=== PATIENT | male | born 1960 | race Caucasian/White ===

== ENCOUNTER → 2020-11-11 09:11 | Outpatient (BNVA) | payer OTHER, SELFPAY | PROVIDERS: PCP Internal Medicine; Visit Provider Surgery ==

== ENCOUNTER → 2021-06-06 12:56 | Outpatient (BNVA) | payer OTHER, SELFPAY | PROVIDERS: PCP Internal Medicine; Visit Provider Internal Medicine Pulmonary Disease ==

== ENCOUNTER 2021-06-22 10:14 | Outpatient (REF) | payer OTHER, SELFPAY ==
--- NOTE | ~2021-06-22 | XR_ITS ---
EXAMINATION: XR CHEST CLINICAL INFORMATION: Z77.090 - Contact with and (suspected) exposure to asbestos COMPARISON: Chest radiographs 06/11/2012, 05/27/2012. TECHNIQUE: 2 views of the chest were obtained. FINDINGS: The lungs are clear. There is no airspace consolidation, fibrotic changes on plain film, pleural thickening, or effusion. The costophrenic sulci are clear. The cardiac and hilar and mediastinal contours are normal. Mild tortuosity descending thoracic aorta are again noted slightly more prominent since 2012. Bony structures again show some loss of height involving several midthoracic vertebral bodies. No acute bony abnormality. XR/XR chest 2V IMPRESSION: No acute intrathoracic disease.
[2021-06-22 10:31] LABS: MANUAL DIFF FLAG NO
[2021-06-22 10:41] LABS: Basophils Absolute Auto 0.1 X10*3/uL (0.0-0.2); Basophils Percent Auto 0.5 % (0-2); Eosinophils Absolute Auto 0.3 X10*3/uL (0.0-0.4); Eosinophils Percent Auto 3.6 % (0-4); Hematocrit 47.5 % (42.0-52.0); Hemoglobin 16.4 g/dl (14.0-18.0); Imm Gran Abs Auto 0.04 X10*3/uL (0.00-0.03); Imm Gran Pct Auto 0.4 % (0.0-0.4); Lymphocytes Absolute Auto 1.5 X10*3/uL (1.2-4.9); Lymphocytes Percent Auto 16.1 % (20-40); Mean Corpuscular HGB Conc 34.5 g/dl (31.0-36.0); Mean Corpuscular Hemoglobin 31.1 pg (27.0-33.0); Mean Corpuscular Volume 90.1 fL (80.0-98.0); Mean Platelet Volume 10.6 fL (9.4-12.4); Monocytes Absolute Auto 0.7 X10*3/uL (0.1-1.2); Neutrophils Absolute Auto 6.6 x10*3/uL (2.0-8.3); Neutrophils Percent Auto 71.4 % (45-73); Platelet Count 219 X10*3/uL (160-400); Red Blood Count 5.27 X10*6/uL (4.60-5.80); Red Cell Distribution Width 13.1 % (11.0-16.0); White Blood Count 9.3 X10*3/uL (4.8-10.8)
== END 2021-06-22 10:15 | disposition home or self-care (01) ==
LOC: HO.XRAY 10:14
PROVIDERS: PCP Internal Medicine; Visit Provider Internal Medicine Pulmonary Disease
DX: Z91.09 Other allergy status, other than to drugs and biological substances (principal); Z77.090 Contact with and (suspected) exposure to asbestos
CPT/HCPCS: 36415; 71046; 82785; 85025; 86003

== ENCOUNTER 2021-07-04 10:05 | Outpatient (REF) | payer OTHER, SELFPAY ==
--- NOTE | 2021-07-04 17:19 | PFT_ITS ---
FLOWS: FEV1 93% of predicted at 3.05 L. FVC 101% of predicted at 4.38 L. FEV1 to FVC ratio of 0.70. Bronchodilator testing was not performed as patient declined bronchodilator testing. LUNG VOLUMES: Total lung capacity 104% of predicted at 6.68 L. Residual volume 107% of predicted at 2.20 L. Slow vital capacity 103% of predicted at 4.48 L. Expiratory reserve volume 70% of predicted at 0.86 L. Diffusion capacity is normal. IMPRESSION: No obstructive or restrictive ventilatory defect. Bronchodilator testing was not performed as patient declined bronchodilator testing. Essentially normal pulmonary function test. MD MAREN Quick/MODL / [id number]
== END 2021-07-04 10:06 | disposition home or self-care (01) ==
LOC: HO.RESP 10:05
PROVIDERS: PCP Internal Medicine; Visit Provider Internal Medicine Pulmonary Disease
DX: J84.9 Interstitial pulmonary disease, unspecified (principal)
CPT/HCPCS: 94010; 94727; 94729

== ENCOUNTER → 2021-08-26 13:09 | Outpatient (BNVA) | payer OTHER, SELFPAY | PROVIDERS: PCP Internal Medicine; Visit Provider Internal Medicine Pulmonary Disease | DX: Z13.89 Encounter for screening for other disorder (principal) ==

== ENCOUNTER 2021-10-10 10:53 | Outpatient (REF) | payer OTHER, SELFPAY ==
--- NOTE | ~2021-10-10 | CT_ITS ---
EXAMINATION: CT CHEST WITHOUT CONTRAST CLINICAL INFORMATION: Interstitial pulmonary disease. COMPARISON: None TECHNIQUE: Multidetector volumetric CT imaging of the chest was done. Axial MIP volume rendering provided. Sagittal and coronal reformatted images were obtained. This CT examination was performed using dose optimization techniques as appropriate, variously including the following: *Automated exposure control *Adjustment of mA and/or kV according to patient size (this includes techniques or standardized protocols for targeted exams where dose is matched to indication/reason for exam; i.e. extremities or head) *Use of iterative reconstruction technique DLP: 197 mGy-cm FINDINGS: CROCHETER: Well inflated lungs. LUNGS: The lungs are hyperinflated but clear of acute pneumonic process. There is a 2 mm nodule right upper lobe adjacent to the major fissure axial image 103/6. No additional nodules seen. There is no interstitial thickening. No bronchiectasis or peribronchial wall thickening. MEDIASTINUM: The thyroid lobes are symmetrical and normal. The central trachea and the bronchi are widely patent. The heart size and the great vessels are normal caliber. There are no coronary artery calcifications. There is no pericardial effusion. PLEURA: There is no pleural effusion. No pleural mass or thickening. AXILLA: No lymphadenopathy. UPPER ABDOMEN: The visualized liver, spleen, pancreas, and bilateral adrenal glands are unremarkable. OSSEOUS STRUCTURES: There is no lytic or sclerotic process seen. There is mild ventral spondylosis mid and lower dorsal spine. No lytic or sclerotic process. CT/CT chest wo con IMPRESSION: Hyperinflated lungs without acute process. There is a small nonsuspicious pulmonary nodule right upper lobe. There is no interstitial thickening. Fleischner guidelines were followed.
== END 2021-10-10 10:54 | disposition home or self-care (01) ==
LOC: HO.CT 10:53
PROVIDERS: PCP Internal Medicine; Visit Provider Internal Medicine Pulmonary Disease
DX: J84.9 Interstitial pulmonary disease, unspecified (principal)
CPT/HCPCS: 71250

== ENCOUNTER 2023-02-16 09:51 | Outpatient (AMB) | payer OTHER, SELFPAY ==
--- NOTE | 2023-02-16 09:54 | MHC.OFFVIS ---
Intake Intake Visit Reasons: Testosterone level consult Intake Note: New Patient is Present for Testosterone Consult Current Medication: None Antibiotic Allergies: None Blood Thinners: None Pharmacy: [facility] Allergies No Known Allergies Allergy (Verified 02/16/23 09:55) Medication List - Last Reconciled 02/16/23 by Reagan Andrea MD No Known Home Meds HPI HPI Comments History of Present Illness Details Bill is a pleasant male. He is a patient of Dr. James. He seen following urologic conditions - abnormal hormonal labs Abnormal hormonal labs High estrogen - over 200. Should be in 150 range Otherwise normal total testosterone 450, free testosterone 54 No reported symptoms Plan repeat lab work PFSH Medical History Umbilical hernia Diastasis recti Surgical History History of repair of ACL Social History Alcohol intake: current Alcohol intake frequency: holidays/special occasions only Patient Tobacco Use Status: Never used Tobacco Review of Systems Const Denies chills and Denies fever(s) Card Reports no additional complaints and Denies syncope Resp Denies cough GI Denies abdominal pain and Denies heartburn Reports as per HPI and Denies change in libido Neuro Denies syncope Psych Denies change in libido Endo Denies change in libido Physical Exam Const General: cooperative, healthy appearing, comfortable and no acute distress Orientation/consciousness: patient oriented x3 HEENT Face and sinus: Yes normal facial exam Mouth: moist mucous membranes Neck Neck: Yes normal visual inspection, Yes full ROM and Yes trachea midline Chest Chest palpation & inspection: normal inspection of the chest Resp Effort & Inspection: normal respiratory effort, able to speak in complete sentences and no respiratory distress GI Inspection: Yes normal to inspection Back/Spine/Pelvis Cervical Spine: normal cervical lordosis Thoracic/Lumbar Spine: thoracic and lumbar spine normal to inspection Skin General skin exam: no rashes or lesions noted Neuro General: patient oriented x3, gait normal, tone normal and moves all extremities Extrem General: Yes normal to inspection and Yes capillary refill normal Assessment & Plan Assessment & Plan (1) Hypogonadism in male: Code(s): E29.1 - Testicular hypofunction Plan Repeat labs Orders: Orders Lutenizing Hormone 02/16/23 E11.69 - Type 2 diabetes mellitus with other specified complication, E29.1 - Testicular hypofunction, N52.1 - Erectile dysfunction due to diseases classified elsewhere Estradiol Ultra Sensitive 02/16/23 E29.1 - Testicular hypofunction Ferritin 02/16/23 E11.9 - Type 2 diabetes mellitus without complications, E29.1 - Testicular hypofunction Hemoglobin A1c 02/16/23 E11.9 - Type 2 diabetes mellitus without complications, E29.1 - Testicular hypofunction Follicle Stimulating Hormone 02/16/23 E29.1 - Testicular hypofunction, R68.82 - Decreased libido Testosterone, Free/Total 02/16/23 E29.1 - Testicular hypofunction, R68.82 - Decreased libido Sex Hormone Binding Globulin 02/16/23 E29.1 - Testicular hypofunction, R68.82 - Decreased libido Albumin Level 02/16/23 E29.1 - Testicular hypofunction Prolactin 02/16/23 E29.1 - Testicular hypofunction, R68.82 - Decreased libido Patient Instructions: Imaging studies, laboratory and physical exam results were discussed and reviewed in detail. No major barriers to patient understanding were identified. An opportunity to ask questions regarding the treatment plan was provided. All questions were answered. The patient expressed understanding and agreement with the above treatment plan. The patient is aware they should contact our office by phone for worsening of their current condition or the appearance of new urologic symptoms. Compliance is encouraged with any medications and followup testing that is ordered. It is a privilege to participate in the urologic care of your patient. If you have any questions or concerns regarding treatment for the above conditions, or other urologic issues, please do not hesitate to contact me. The office telephone contact is [phone]. This note is constructed using voice recognition software. While every effort has been made to ensure accuracy mechanical service specialist errors may have been included. Yours sincerely, Dr Reagan Andrea MD, [facility] - Urology Providers of Expert, Compassionate Care for the Genitourinary System Coding Level of Care Code New Pt Level 3 (49156) Diagnoses Hypogonadism in male E29.1
== END 2023-02-16 10:32 | disposition home or self-care (01) ==
PROVIDERS: PCP Internal Medicine; Visit Provider Urology
DX: E29.1 Testicular hypofunction (principal)
CPT/HCPCS: 99203

== ENCOUNTER → 2023-02-16 09:51 | Outpatient (BNVA) | payer OTHER, SELFPAY | PROVIDERS: PCP Internal Medicine; Visit Provider Urology ==

== ENCOUNTER 2023-02-26 12:08 | Outpatient (REF) | payer OTHER, SELFPAY ==
[2023-02-26 13:24] LABS: Estimated Average Glucose 94 mg/dL; Hemoglobin A1c % 4.9 % (<6.0)
[2023-02-26 13:27] LABS: Albumin Level 4.4 g/dL (3.5-5.0)
[2023-02-26 13:55] LABS: Ferritin 494 ng/mL (20-250)
[2023-02-27 20:14] LABS: Follicle Stimulating Hormone 4.8 mIU/mL (1.6-8.0); Lutenizing Hormone 4.6 mIU/mL (1.6-15.2); Prolactin 5.7 ng/mL (2.0-18.0); Sex Hormone Binding Globulin 45 nmol/L (22-77)
[2023-03-02 17:47] LABS: Testosterone, Free 66.4 pg/mL (35.0-155.0); Testosterone, Total 558 ng/dL (250-1100)
[2023-03-03 03:54] LABS: Estradiol Ultra Sensitive 28 pg/mL (< OR = 29)
== END 2023-02-26 12:09 | disposition home or self-care (01) ==
LOC: HO.10HDL 12:08
PROVIDERS: Visit Provider Urology
DX: E11.69 Type 2 diabetes mellitus with other specified complication (principal); N52.1 Erectile dysfunction due to diseases classified elsewhere; E29.1 Testicular hypofunction; R68.82 Decreased libido
CPT/HCPCS: 36415; 82040; 82670; 82728; 83001; 83002; 83036; 84146; 84270; 84402; 84403

== ENCOUNTER 2023-03-13 13:03 | Outpatient (AMB) | payer OTHER, SELFPAY ==
--- NOTE | 2023-03-13 13:03 | MHC.OFFVIS ---
Intake Intake Visit Reasons: 4w/labs(set) Intake Note: Patient is Present for Telephone Follow Up For Urology Med: none Antibiotic Allergy: none Blood Thinner:none Allergies No Known Allergies Allergy (Verified 02/16/23 09:55) HPI HPI Comments History of Present Illness Details Bill is a pleasant male. He is a patient of Dr. James. He seen following urologic conditions - abnormal hormonal labs Telemedicine Evaluation 15 min Consultation [employer] Repeat lab work 02/26 T 558, Free T 65, FSH 4.6, LH 4.6, E2 28, Ferritin 494 Broken sleep pattern Abnormal hormonal labs High estrogen - over 200. Should be in 150 range Otherwise normal total testosterone 450, free testosterone 54 No reported symptoms NAD f/u PFSH Medical History Umbilical hernia Diastasis recti Surgical History History of repair of ACL Social History Alcohol intake: current Alcohol intake frequency: holidays/special occasions only Patient Tobacco Use Status: Never used Tobacco Review of Systems Const All systems reviewed & are unremarkable except as noted in HPI and below Reports no additional complaints Resp Reports no additional complaints GI Reports no additional complaints Reports as per HPI Musc Reports no additional complaints Physical Exam Telemedicine evaluation Appropriate responses Regular breathing rate and rhythm HEENT Head: Yes normal to inspection Ears: hearing grossly normal bilaterally Eyes General: appearance normal, both eyes and all related structures Neck Neck: Yes normal visual inspection Chest Chest palpation & inspection: normal inspection of the chest Resp Effort & Inspection: normal respiratory effort and able to speak in complete sentences Assessment & Plan Assessment & Plan (1) Hypogonadism in male: Code(s): E29.1 - Testicular hypofunction Plan PRN Patient Instructions: Imaging studies, laboratory and physical exam results were discussed and reviewed in detail. No major barriers to patient understanding were identified. An opportunity to ask questions regarding the treatment plan was provided. All questions were answered. The patient expressed understanding and agreement with the above treatment plan. The patient is aware they should contact our office by phone for worsening of their current condition or the appearance of new urologic symptoms. Compliance is encouraged with any medications and followup testing that is ordered. It is a privilege to participate in the urologic care of your patient. If you have any questions or concerns regarding treatment for the above conditions, or other urologic issues, please do not hesitate to contact me. The office telephone contact is [phone]. This note is constructed using voice recognition software. While every effort has been made to ensure accuracy ammunition assembly i laborer errors may have been included. Yours sincerely, Dr Reagan Andrea MD, [facility] - Urology Providers of Expert, Compassionate Care for the Genitourinary System Telehealth Telehealth Location of provider rendering services: practice address Location of patient: address on file Patient Identification confirmed using: Name, : Yes Telehealth method: video Patient verbally consented to treatment: Yes Patient verbally consented to billing insurance company: Yes Patient informed of any privacy concerns related to visit: Yes Coding Level of Care Code Tele Est Pt Level 3 (86334) Diagnoses Hypogonadism in male E29.1
== END 2023-03-13 13:51 | disposition home or self-care (01) ==
LOC: HO.HUSH 13:03
PROVIDERS: PCP Internal Medicine; Visit Provider Urology
DX: E29.1 Testicular hypofunction (principal)
CPT/HCPCS: 99213

== ENCOUNTER → 2023-03-13 13:03 | Outpatient (BNVA) | payer OTHER, SELFPAY | PROVIDERS: PCP Internal Medicine; Visit Provider Urology ==

== ENCOUNTER 2023-10-16 10:17 | Outpatient (REF) | payer OTHER, SELFPAY ==
[2023-10-16 11:17] LABS: Estimated Average Glucose 97 mg/dL
[2023-10-16 11:49] LABS: Albumin Level 4.1 g/dL (3.5-5.0)
[2023-10-16 11:50] LABS: Anion Gap 11 (12-20)
[2023-10-16 11:54] LABS: Alanine Aminotransferase 31 U/L (0-40); Alkaline Phosphatase 57 U/L (39-117); Aspartate Amino Transferase 24 U/L (5-37); Bilirubin Total 0.9 mg/dL (0.0-1.0); Blood Urea Nitrogen 18 mg/dL (9-16); Carbon Dioxide 26 mmol/L (22-29); Chloride 105 mmol/L (96-108); Cholesterol 187 mg/dL (<200); Estimated Glomerular Filt Rate > 60; Glucose Random 96 mg/dL (60-115); HDL Cholesterol 35 mg/dL (>40); LDL Cholesterol Calculated 134 mg/dL (<100); Sodium 138 mmol/L (135-145); Total Protein 6.9 g/dL (6.5-8.0); Triglycerides 92 mg/dL (<150)
[2023-10-16 12:11] LABS: Ferritin 556 ng/mL (20-250)
[2023-10-16 12:25] LABS: Prostate Specific Antigen 0.34 ng/mL (<0.05-4.0)
[2023-10-18 01:34] LABS: Follicle Stimulating Hormone 5.1 mIU/mL (1.4-12.8); Lutenizing Hormone 3.3 mIU/mL (1.6-15.2); Prolactin 5.1 ng/mL (2.0-18.0); Sex Hormone Binding Globulin 42 nmol/L (22-77)
[2023-10-20 19:19] LABS: Testosterone, Free 73.7 pg/mL (35.0-155.0); Testosterone, Total 550 ng/dL (250-1100)
[2023-10-23 02:48] LABS: Estradiol Ultra Sensitive 40 pg/mL (< OR = 29)
== END 2023-10-16 10:18 | disposition home or self-care (01) ==
LOC: HO.10HDL 10:17
PROVIDERS: Visit Provider Urology
DX: R53.83 Other fatigue (principal); E78.5 Hyperlipidemia, unspecified; Z12.5 Encounter for screening for malignant neoplasm of prostate
CPT/HCPCS: 36415; 80053; 80061; 82670; 82728; 83001; 83002; 83036; 84146; 84153; 84270; 84402; 84403

== ENCOUNTER 2023-10-23 11:04 | Outpatient (AMB) | payer OTHER, SELFPAY ==
--- NOTE | 2023-10-23 11:06 | A.OFFVIS_ITS ---
Intake Visit Reasons: follow up/abnormal hormonal labs Intake Note: Patient is Present for Follow Up Labs Urology Medication: none Antibiotic Allergies:None Blood Thinners:None Community Health Planning Director Required: No Allergies No Known Allergies Allergy (Verified 10/23/23 11:10) Medication List - Last Reconciled 10/23/23 by Reagan Andrea MD No Known Home Meds HPI Comments Details: Bill is a pleasant male. He is a patient of Dr. James. He seen following urologic conditions - abnormal hormonal labs Follow-up with high estrogen Repeat lab work 02/26 T 558, Free T 65, FSH 4.6, LH 4.6, E2 28, Ferritin 494 10/28 T 550 S 42 LH/FSH normal Had work 3rd shift at [employer] for many years Now retired Estrogen high 40 High ferritin persists Will check iron profile for hemochromatosis Abnormal hormonal labs High estrogen - over 200. Should be in 150 range Otherwise normal total testosterone 450, free testosterone 54 No reported symptoms NAD f/u PFSH Medical History Umbilical hernia Diastasis recti Surgical History History of repair of ACL Social History Alcohol intake: current Alcohol intake frequency: holidays/special occasions only Patient Tobacco Use Status: Never used Tobacco Review of Systems Const Denies chills and Denies fever(s) Card Reports no additional complaints and Denies syncope Resp Denies cough GI Denies abdominal pain and Denies heartburn Reports as per HPI and Denies change in libido Neuro Denies syncope Psych Denies change in libido Endo Denies change in libido Physical Exam Const General: cooperative, healthy appearing, comfortable and no acute distress Orientation/consciousness: patient oriented x3 HEENT Face and sinus: Yes normal facial exam Mouth: moist mucous membranes Neck Neck: Yes normal visual inspection, Yes full ROM and Yes trachea midline Chest Chest palpation & inspection: normal inspection of the chest Resp Effort & Inspection: normal respiratory effort, able to speak in complete sentences and no respiratory distress GI Inspection: Yes normal to inspection Back/Spine/Pelvis Cervical Spine: normal cervical lordosis Thoracic/Lumbar Spine: thoracic and lumbar spine normal to inspection Skin General skin exam: no rashes or lesions noted Neuro General: patient oriented x3, gait normal, tone normal and moves all extremities Extrem General: Yes normal to inspection and Yes capillary refill normal Assessment & Plan Assessment & Plan (1) Hypogonadism in male: Code(s): E29.1 - Testicular hypofunction Category: Medical (2) Elevated ferritin: Code(s): R79.89 - Other specified abnormal findings of blood chemistry Category: Medical Plan Six-month follow-up Orders: Orders IRON PROFILE Today E29.1 - Testicular hypofunction Testosterone, Total 6 Months E29.1 - Testicular hypofunction Estradiol Ultra Sensitive 6 Months E29.1 - Testicular hypofunction Patient Instructions: Imaging studies, laboratory and physical exam results were discussed and reviewed in detail. No major barriers to patient understanding were identified. An opportunity to ask questions regarding the treatment plan was provided. All questions were answered. The patient expressed understanding and agreement with the above treatment plan. The patient is aware they should contact our office by phone for worsening of their current condition or the appearance of new urologic symptoms. Compliance is encouraged with any medications and followup testing that is ordered. It is a privilege to participate in the urologic care of your patient. If you have any questions or concerns regarding treatment for the above conditions, or other urologic issues, please do not hesitate to contact me. The office telephone contact is [phone]. This note is constructed using voice recognition software. While every effort has been made to ensure accuracy magnetic tape typewriter operator errors may have been included. Yours sincerely, Dr Reagan Andrea MD, [facility] - Urology Providers of Expert, Compassionate Care for the Genitourinary System Coding Level of Care Code Est Pt Level 3 (38587) Diagnoses Hypogonadism in male E29.1 Elevated ferritin R79.89
== END 2023-10-23 11:58 | disposition home or self-care (01) ==
PROVIDERS: PCP Internal Medicine; Visit Provider Urology
DX: E29.1 Testicular hypofunction (principal); R79.89 Other specified abnormal findings of blood chemistry
CPT/HCPCS: 99213

== ENCOUNTER → 2023-10-23 11:04 | Outpatient (BNVA) | payer OTHER, SELFPAY | PROVIDERS: PCP Internal Medicine; Visit Provider Urology ==

== ENCOUNTER 2023-11-13 09:59 | Outpatient (REF) | payer OTHER, SELFPAY ==
[2023-11-13 11:17] LABS: Albumin Level 4.1 g/dL (3.5-5.0); Iron 164 mcg/dL (45-160); Percent Iron Saturation 68 % (15-50); Total Iron Binding Capacity 242 mcg/dL (228-428); Unsaturated Iron Binding 78 ug/dL
== END 2023-11-13 10:00 | disposition home or self-care (01) ==
LOC: HO.10HDL 09:59
PROVIDERS: Visit Provider Urology
DX: E29.1 Testicular hypofunction (principal)
CPT/HCPCS: 36415; 82040; 83540

== ENCOUNTER 2023-12-06 12:04 | Outpatient (AMB) | payer OTHER, SELFPAY ==
--- NOTE | 2023-12-06 12:05 | A.OFFVIS_ITS ---
Intake Visit Reasons: follow up/labs Intake Note: Patient is present for Telephone follow up Iron results Allergies No Known Allergies Allergy (Verified 10/23/23 11:10) HPI Comments Details: Bill is a pleasant male. He is a patient of Dr. James. He seen following urologic conditions - abnormal hormonal labs Telemedicine Evaluation 15 min Consultation [employer] Video Follow-up with high estrogen Repeat lab work 02/26 T 558, Free T 65, FSH 4.6, LH 4.6, E2 28, Ferritin 494 10/28 T 550 S 42 LH/FSH normal Had work 3rd shift at [employer] for many years Now retired Estrogen high 40 High ferritin persists - not hemochromatosis Abnormal hormonal labs High estrogen - over 200. Should be in 150 range Otherwise normal total testosterone 450, free testosterone 54 No reported symptoms NAD f/u PFSH Medical History Umbilical hernia Diastasis recti Surgical History History of repair of ACL Social History Alcohol intake: current Alcohol intake frequency: holidays/special occasions only Patient Tobacco Use Status: Never used Tobacco Review of Systems Const All systems reviewed & are unremarkable except as noted in HPI and below Denies chills and Denies fever(s) Card Reports no additional complaints and Denies syncope Resp Denies cough GI Denies abdominal pain and Denies heartburn Reports as per HPI and Denies change in libido Musc Reports no additional complaints Neuro Denies syncope Psych Denies change in libido Endo Denies change in libido Physical Exam Telemedicine evaluation Appropriate responses Regular breathing rate and rhythm Const General: cooperative, healthy appearing, comfortable and no acute distress Orientation/consciousness: patient oriented x3 HEENT Head: Yes normal to inspection Ears: hearing grossly normal bilaterally Face and sinus: Yes normal facial exam Mouth: moist mucous membranes Eyes General: appearance normal, both eyes and all related structures Neck Neck: Yes normal visual inspection, Yes full ROM and Yes trachea midline Chest Chest palpation & inspection: normal inspection of the chest Resp Effort & Inspection: normal respiratory effort, able to speak in complete sentences and no respiratory distress GI Inspection: Yes normal to inspection Back/Spine/Pelvis Cervical Spine: normal cervical lordosis Thoracic/Lumbar Spine: thoracic and lumbar spine normal to inspection Skin General skin exam: no rashes or lesions noted Neuro General: patient oriented x3, gait normal, tone normal and moves all extremities Extrem General: Yes normal to inspection and Yes capillary refill normal Telehealth Telehealth Telehealth Platform: [employer] Location of provider rendering services: practice address Location of patient: address on file Patient Identification confirmed using: Name, : Yes Telehealth method: video Patient verbally consented to treatment: Yes Patient verbally consented to billing insurance company: Yes Patient informed of any privacy concerns related to visit: Yes Minutes spent on Phone/Video with Pt.: 15 Assessment & Plan Assessment & Plan (1) Hypogonadism in male: Code(s): E29.1 - Testicular hypofunction Category: Medical Plan P.r.n. follow-up Patient Instructions: Imaging studies, laboratory and physical exam results were discussed and reviewed in detail. No major barriers to patient understanding were identified. An opportunity to ask questions regarding the treatment plan was provided. All questions were answered. The patient expressed understanding and agreement with the above treatment plan. The patient is aware they should contact our office by phone for worsening of their current condition or the appearance of new urologic symptoms. Compliance is encouraged with any medications and followup testing that is ordered. It is a privilege to participate in the urologic care of your patient. If you have any questions or concerns regarding treatment for the above conditions, or other urologic issues, please do not hesitate to contact me. The office telephone contact is [phone]. This note is constructed using voice recognition software. While every effort has been made to ensure accuracy resident care assistant errors may have been included. Yours sincerely, Dr Reagan Andrea MD, [facility] - Urology Providers of Expert, Compassionate Care for the Genitourinary System Coding Level of Care Code Tele Est Pt Level 3 (26826) Diagnoses Hypogonadism in male E29.1
== END 2023-12-06 13:55 | disposition home or self-care (01) ==
LOC: HO.HUSH 12:04
PROVIDERS: PCP Internal Medicine; Visit Provider Urology
DX: E29.1 Testicular hypofunction (principal)
CPT/HCPCS: 99213

== ENCOUNTER → 2023-12-06 12:04 | Outpatient (BNVA) | payer OTHER, SELFPAY | PROVIDERS: PCP Internal Medicine; Visit Provider Urology ==

== ENCOUNTER 2024-02-27 13:21 | Outpatient (REF) | payer OTHER, SELFPAY ==
[2024-03-03 13:18] LABS: Testosterone, Total 446 ng/dL (250-1100)
[2024-03-06 01:14] LABS: Estradiol Ultra Sensitive 28 pg/mL (< OR = 29)
== END 2024-02-27 13:22 | disposition home or self-care (01) ==
LOC: HO.LAB 13:21
PROVIDERS: PCP Internal Medicine; Visit Provider Urology
DX: E29.1 Testicular hypofunction (principal)
CPT/HCPCS: 36415; 82670; 84403

== ENCOUNTER → 2024-02-29 15:11 | Outpatient (BNVA) | payer OTHER, SELFPAY | PROVIDERS: PCP Internal Medicine; Visit Provider Urology ==

== ENCOUNTER 2024-03-04 09:38 | Outpatient (REF) | payer OTHER, SELFPAY ==
[2024-03-04 11:51] LABS: Iron 147 mcg/dL (45-160); Percent Iron Saturation 57 % (15-50); Total Iron Binding Capacity 260 mcg/dL (228-428); Unsaturated Iron Binding 113 ug/dL
== END 2024-03-04 09:39 | disposition home or self-care (01) ==
LOC: HO.10HDL 09:38
PROVIDERS: Visit Provider Urology
DX: E29.1 Testicular hypofunction (principal)
CPT/HCPCS: 36415; 83540

== ENCOUNTER 2024-03-06 10:38 | Outpatient (AMB) | payer OTHER, SELFPAY ==
--- NOTE | 2024-03-06 10:40 | MHC.OFFVIS ---
Intake Visit Reasons: Iron/Labs follow up Intake Note: Patient is Present for Telephone Follow Up Iron/Testosterone results Urology Med: None Antibiotic Allergy:None Blood Thinner: None 02/27/2024 Total Testosterone: 446 03/04/24 Iron 147 Lacquer Coater Required: No Allergies No Known Allergies Allergy (Verified 03/06/24 10:41) HPI Comments Details: Bill is a pleasant male. He is a patient of Dr. James. He seen following urologic conditions - abnormal hormonal labs Telemedicine Evaluation 15 min Consultation DoximSabirmedical Atul Video Follow-up with high estrogen - is now down to under 30 Repeat lab work 02/26 T 558, Free T 65, FSH 4.6, LH 4.6, E2 28, Ferritin 494 10/28 T 550 S 42 LH/FSH normal 02/27 T 440 Had work 3rd shift at [employer] for many years Now retired Estrogen high 40 High ferritin persists - not hemochromatosis Abnormal hormonal labs High estrogen - over 200. Should be in 150 range Otherwise normal total testosterone 450, free testosterone 54 No reported symptoms NAD f/u PFSH Medical History Umbilical hernia Diastasis recti Surgical History History of repair of ACL Social History Alcohol intake: current Alcohol intake frequency: holidays/special occasions only Patient Tobacco Use Status: Never used Tobacco Review of Systems Const All systems reviewed & are unremarkable except as noted in HPI and below Reports no additional complaints Resp Reports no additional complaints GI Reports no additional complaints Reports as per HPI Musc Reports no additional complaints Physical Exam Telemedicine evaluation Appropriate responses Regular breathing rate and rhythm HEENT Head: Yes normal to inspection Ears: hearing grossly normal bilaterally Eyes General: appearance normal, both eyes and all related structures Neck Neck: Yes normal visual inspection Chest Chest palpation & inspection: normal inspection of the chest Resp Effort & Inspection: normal respiratory effort and able to speak in complete sentences Telehealth Telehealth Telehealth Platform: [employer] Location of provider rendering services: practice address Location of patient: address on file Patient Identification confirmed using: Name, : Yes Telehealth method: video Patient verbally consented to treatment: Yes Patient verbally consented to billing insurance company: Yes Patient informed of any privacy concerns related to visit: Yes Minutes spent on Phone/Video with Pt.: 15 Assessment & Plan Assessment & Plan (1) Hypogonadism in male: Code(s): E29.1 - Testicular hypofunction Category: Medical (2) Elevated ferritin: Code(s): R79.89 - Other specified abnormal findings of blood chemistry Category: Medical Plan 6m f/u tele - labs Orders: Orders Testosterone, Free/Total 6 Months E29.1 - Testicular hypofunction, R68.82 - Decreased libido Estradiol Ultra Sensitive 6 Months E29.1 - Testicular hypofunction Patient Instructions: Imaging studies, laboratory and physical exam results were discussed and reviewed in detail. No major barriers to patient understanding were identified. An opportunity to ask questions regarding the treatment plan was provided. All questions were answered. The patient expressed understanding and agreement with the above treatment plan. The patient is aware they should contact our office by phone for worsening of their current condition or the appearance of new urologic symptoms. Compliance is encouraged with any medications and followup testing that is ordered. It is a privilege to participate in the urologic care of your patient. If you have any questions or concerns regarding treatment for the above conditions, or other urologic issues, please do not hesitate to contact me. The office telephone contact is [phone]. This note is constructed using voice recognition software. While every effort has been made to ensure accuracy planning consultant errors may have been included. Yours sincerely, Dr Reagan Andrea MD, [facility] - Urology Providers of Expert, Compassionate Care for the Genitourinary System Coding Level of Care Code Tele Est Pt Level 4 (77744) Diagnoses Hypogonadism in male E29.1 Elevated ferritin R79.89
--- OUTSIDE RECORDS SUMMARY | 2024-03-06 10:40 | XMS_ITS ---
Author Organization [facility] Eddie Harrisley Address [address] [place] [address] Care Team Providers Care Nurse Sane Name Role Phone José Flynn MD Primary Care Provider Unavailab Vidal Pratt Unavailable [phone] REASON FOR VISIT No Show Encounters Encounter Location Date Provider Diagnosis [facility] [address] [place] [address] 01/02/2024 Vidal Garcia PLAN OF TREATMENT No Information
--- OUTSIDE RECORDS SUMMARY | 2024-03-06 10:40 | XMS_ITS ---
Author Organization [facility] Eddie Harrisley Address [address] [address] Care Team Providers Care Transfer Agent Name Role Phone Joés Flynn MD Primary Care Provider Unavailab Vidal Pratt Unavailable [phone] Encounters Encounter Location Date Provider Diagnosis [facility] [address] [place] [address] 01/02/2024 Vidal Garcia PLAN OF TREATMENT No Information
--- OUTSIDE RECORDS SUMMARY | 2024-03-06 10:40 | XMS_ITS | Patient Health Record ---
Author Organization [facility] Eddie Harrisley Address [address] [facility] [place] [address] Care Team Providers Care Graphic Artist Name Role Phone José Flynn MD Primary Care Provider UnavailVidal Mccullough Unavailable [phone] ALLERGIES No Known Allergies REASON FOR REFERRAL No Information MEDICATIONS Medication SIG (Take, Route, Frequency, Duration) Notes Start Date End Date Status Walking Boot/Pneumatic As directed Wear Daily for Until further notice Active Physical Therapy . . . 2-3x/week for 3- 4 weeks Active Custom Orthotics as directed A ctive Ciclopirox Olamine 0.77 % 1 application to affected area Externally Twice a day to effected areas on feet for 30 days Active Night Splint AFO - L1930 as directed Active Custom Orthotics as directed 02/20/2022 Active IMMUNIZATIONS Vaccine Route Administration Date Status Comme nts COVID-19 Pfizer BioNTech Vaccine Unknown 05/07/2020 Administered 04/2020 unsure Dates SOCIAL HISTORY Tobacco Use: Social History Observation Description Date Details (start date - stop date) Never Smoker NA - NA Sex Assigned At : Social History Observation Description Sex Assigned At Unknown Tobacco Use/Smoking Question Answer Notes Are you a: nonsmoker Additional Findings: Tobacco Non-User Aggressive non-smoker Tobacco use other than smoking: Question Answer Notes Are you an other tobacco user? No VITAL SIGNS Blood pressure diastolic 80 mm Hg 10/04/2023 Height 5 ft 7 in in 10/04/2023 Blood pressure systolic 120 mm Hg 10/04/2023 Weight 195 lbs 10/04/2023 BMI 30.54 kg/m2 10/04/2023 Encounters Encounter Location Date Provider Diagnosis [facility] [address] [facility] [address] [place] [address] 10/03/2023 Vidal Garcia [address] [address] 10/04/2023 Vidal Garcia Plantar fascial fibromatosis M72.2 ; Pain in left foot M79.672 ; Pain in right foot M79.671 ; Tinea pedis B35.3 and Tinea unguium B35.[address] [address] 10/04/[address] [address] 11/12/2023 Vidal Garica Plantar fascial fibromatosis M72.2 ; Pain in left foot M79.672 ; Pain in right foot M79.671 ; Tinea pedis B35.3 and Tinea unguium B35.[address] [address] 01/02/[address] [address] 01/02/[address] [address] 01/17/2024 Vidal Garcia ASSESSMENTS Encounter Date Diagnosis Assessment Notes Treatment Notes Treatment Clinical Notes 10/04/2023 Plantar fascial fibromatosis (ICD-10 - M72.2) 10/04/2023 Pain in left foot (ICD-10 - M79.672) 11/12/2023 Plantar fascial fibromatosis (ICD-10 - M72.2) 11/12/2023 Pain in left foot (ICD-10 - M79.672) 10/04/2023 Pain in right foot (ICD-10 - M79.671) 10/04/2023 Tinea pedis (ICD-10 - B35.3) 11/12/2023 Pain in right foot (ICD-10 - M79.671) 11/12/2023 Tinea pedis (ICD-10 - B35.3) 10/04/2023 Tinea unguium (ICD-10 - B35.1) 11/12/2023 Tinea unguium (ICD-10 - B35.1) PLAN OF TREATMENT Pending Test Test Name Order Date X ray : Foot, left 3V 02/20/2022 X ray : Foot, right 3V 10/04/2023 X ray : Ankle, right 3V 02/20/2022 Insurance Providers Payer Name Payer Address Payer Phone Subscriber Number Group Number Insured Name Patient Relationship to Insured Coverage Start Date Coverage End Date [facility] ([facility]) [address] [place] [id number] Bill Colin Self - patient is the insured MEDICAL (GENERAL) HISTORY Medical History History ICD Code Joint implants/screws Surgical History Surgery Date(Month/Year) knee surgery, left acl
--- OUTSIDE RECORDS SUMMARY | 2024-03-06 10:40 | XMS_ITS ---
Author Organization [facility] Eddie Harrisley Address [address] [place] [address] Care Team Providers Care Automotive Internet Sales Manager Name Role Phone José Flynn MD Primary Care Provider Unavailab Vidal Pratt Unavailable [phone] REASON FOR VISIT Custom orthotics Encounters Encounter Location Date Provider Diagnosis [facility] [address] [place] [address] 01/17/2024 Vidal Garcia PLAN OF TREATMENT No Information
== END 2024-03-06 11:25 | disposition home or self-care (01) ==
LOC: HO.HUSH 10:39
PROVIDERS: PCP Internal Medicine; Visit Provider Urology
DX: E29.1 Testicular hypofunction (principal); R79.89 Other specified abnormal findings of blood chemistry
CPT/HCPCS: 99214

== ENCOUNTER → 2024-03-06 10:38 | Outpatient (BNVA) | payer OTHER, SELFPAY | PROVIDERS: PCP Internal Medicine; Visit Provider Urology ==

== ENCOUNTER 2024-08-15 11:04 | Outpatient (REF) | payer OTHER, SELFPAY ==
--- OUTSIDE RECORDS SUMMARY | 2024-08-15 12:03 | XMS_ITS ---
Author Organization [facility] Address [address] [place] [address] Care Team Providers Care Marketing Rep Name Role Phone José Flynn MD Primary Care Provider Unavailab Vidal Pratt [phone] REASON FOR VISIT No Show Encounters Encounter Location Date Provider Diagnosis [facility] [address] [facility] [place] [address] 01/02/2024 Vidal Garcia Plan Of Treatment No Information Progress Notes * BEULAHJerome TrianaNoamOB:1960 ( 63 yo M)Acc No.[id number]:01/02/2024 Patient:?Bill Colin :1960???Age:63 Y???Sex:Male Address:[address] , [place], [address] * true * Date:? Generated for Printi ng/Fasteveng/eTransmitting on:?08/15/2024 12:03 PM EDT
--- OUTSIDE RECORDS SUMMARY | 2024-08-15 12:03 | XMS_ITS | Clinical Summary ---
Author Organization [facility] Address [address] [id number] Care Team Providers Care Wheelman Name Role Phone Unavailable Primary Care Provider Unavailabl e Social History Tobacco Use Types Packs/Day Years Used Date Smoking Tobacco: Never Assessed Sex and Gender Information Value Date Recorded Sex Assigned at Not on file Legal Sex Male 3:56 AM EDT Gender Identity Not on file Sexual Orientation Not on file Plan of Treatment Health Maintenance Due Date Last Done Comments Hepatitis C Screening 1960 DTaP/Tdap/Td (1 - Tdap) 1980 Pneumococcal 50+ years (1 of 1 - PCV) 2012 Zoster (Shingrix) (1 of 2) 2012 COVID-19 Vaccine ( - 2023-2 5 season) 2024 Influenza (#1) 2024 RSV (1 - 1-dose 75+ series) 2037 HPV Vaccine Aged Out No longer eligi ble based on patient's age to complete this topic Hep A Aged Out No longer eligi ble based on patient's age to complete this topic Hep B Aged Out No longer eligi ble based on patient's age to complete this topic Hib Aged Out No longer eligi ble based on patient's age to complete this topic Meningococcal ACWY Aged Out No longer eligible based on patient's age to complete this topic Zoster (Zostavax) Discontinued
--- OUTSIDE RECORDS SUMMARY | 2024-08-15 12:03 | XMS_ITS ---
Author Organization [facility] Address [address] [facility] [place] [address] Care Team Providers Care Farmhand Name Role Phone José Flynn MD Primary Care Provider Unavailab Vidal Pratt [phone] REASON FOR VISIT Custom orthotics Encounters Encounter Location Date Provider Diagnosis [facility] [address] [facility] [place] [address] 01/17/2024 Vidal Garcia Plan Of Treatment No Information Progress Notes * Jerome RIOJASNoamOB:1960 ( 63 yo M)Acc No.[id number]:01/17/2024 Patient:?Bill Riojas :1960???Age:63 Y???Sex:Male Address:[address] , [place], [address] * true * Date:? Generated for Printi ng/Fasteveng/eTransmitting on:?08/15/2024 12:03 PM EDT
--- OUTSIDE RECORDS SUMMARY | 2024-08-15 12:03 | XMS_ITS | Patient Health Record ---
Author Organization [facility] Address [address] [facility] [place] [address] Care Team Providers Care Gut Puller Name Role Phone José Flynn MD Primary Care Provider UnavailVidal Mccullough Unavailable [phone] Allergies No Known Allergies Reason For Referral No Information Medications Medication SIG (Take, Route, Frequency, Duration) Notes [...] Active Custom Orthotics as directed 02/20/2022 Active Immunizations Vaccine Route Administration Date Status Comme nts COVID-19 Pfizer BioNTech Vaccine Unknown 05/07/2020 Administered 04/2020 unsure Dates Social History Tobacco Use: Social History Observation Description Date Details (start date - stop date) Never Smoker NA - NA Tobacco Use/Smoking Question Answer Notes Are you a: nonsmoker Additional Findings: Tobacco Non-User Aggressive non-smoker Tobacco use other than smoking: Question Answer Notes Are you an other tobacco user? No Vital Signs Blood pressure diastolic 80 mm Hg 10/04/2023 Height 5 ft 7 in in 10/04/2023 Blood pressure systolic 120 mm Hg 10/04/2023 Weight 195 lbs 10/04/2023 BMI 30.54 kg/m2 10/04/2023 Encounters Encounter Location Date Provider Diagnosis [facility] [address] [address] 10/04/2023 Vidal Garcia Plantar fascial fibromatosis M72.2 ; Pain in left foot M79.672 ; Pain in right foot M79.671 ; Tinea pedis B35.3 and Tinea unguium B35.1 [facility] [address] [facility] [address] [place] [address] 10/03/2023 [facility] [address] 10/04/[address] [address] 01/02/[address] [address] 01/17/2024 Vidal Garcia Assessments Encounter Date Diagnosis (ICD Code) Assessment Notes Treatment Notes Treatment Clinical Notes Section Notes 10/04/2023 Plantar fascial fibromatosis (ICD-10 - M72.2) 10/04/2023 Pain in left foot (ICD-10 - M79.672) 10/04/2023 Pain in right foot (ICD-10 - M79.671) 10/04/2023 Tinea pedis (ICD-10 - B35.3) 10/04/2023 Tinea unguium (ICD-10 - B35.1) Plan Of Treatment Pending Test Test Name Order Date X ray : Foot, left 3V 02/20/2022 X ray : Foot, right 3V 10/04/2023 X ray : Ankle, right 3V 02/20/2022 Insurance Providers Payer Name Payer Address Payer Phone Subscriber Number Group Number Insured Name Patient Relationship to Insured Coverage Start Date Coverage End Date [facility] ([facility]) [address] [place] [id number] [facility] Bill Colin Self - patient is the insured Medical (General) History Medical History History ICD Code Joint implants/screws Surgical History Surgery Date(Month/Year) knee surgery, left acl
--- OUTSIDE RECORDS SUMMARY | 2024-08-15 12:03 | XMS_ITS ---
Author Organization [facility] Address [address] [facility] [place] [address] Care Team Providers Care Substation Mechanic Name Role Phone Rina RUBIN, José Primary Care Provider Unavailab Vidal Pratt [facility] [phone] Encounters Encounter Location Date Provider Diagnosis [facility] [address] [facility] [place] [address] 01/02/2024 Vidal Garcia Plan Of Treatment No Information Progress Notes * Jerome RIOJASeDOB:1960 ( 63 yo M)Acc No.[id number]:01/02/2024 Progress Note Patient:?Bill RIOJAS Provider:?Vidal Garcia DPM :1960???Age:63 Y???Sex:Male Duc e:01/02/2024 Address[address] [place] Pcp:José Flynn MD Subjective: * Chief Complaints: * ??? * Medical History:? Objective: * Vitals:? Assessment: Plan: * Treatment: * Images: * The named appointment provid er may or may not be the originator of this progress note, and it is not deemed complete until electronically signed by the appointment provider. Sign off status: Pending * Provider:Gris Garcia DPM Date:? 024 Generated for Printi ng/Faxing/eTransmitting on:?08/15/2024 12:03 PM EDT
--- OUTSIDE RECORDS SUMMARY | 2024-08-15 12:03 | XMS_ITS | Clinical Summary ---
Author Organization [address] [facility] Address [address] [place] [address] Phone Care Team Providers Care Procurement Accountant Name Role Phone José Flynn MD Primary Care Provider [phone] Allergies No known active allergies Social History Tobacco Use Types Packs/Day Years Used Date Smoking Tobacco: Never Assessed Sex and Gender Information Value Date Recorded Sex Assigned at Not on file Legal Sex Male 5:16 AM EST Gender Identity Not on file Sexual Orientation Not on file Plan of Treatment Health Maintenance Due Date Last Done Comments DTaP,Tdap,and Td Vaccines (1 - Tdap) 1981 Pneumococcal Vaccine: 50+ Ye ars (1 of 1 - PCV) 2012 Zoster Vaccines (1 of 2) 2012 COVID-19 Vaccine ( - 2023-2 5 season) 2024 Cholesterol Screening (Lipid Panel) 03/04/2024 Colorectal Cancer Screening: Colonoscopy 03/04/2024 Depression Screening 03/04/2024 HIV Screening 03/04/2024 Hepatitis C Screening 03/04/2024 Social Influencers of Health Screening 03/04/2024 Influenza Vaccine (Season Ended) 2025 RSV Immunization Adult Patie nts (1 - 1-dose 75+ series) 2037 HIB Vaccines Aged Out No longer eligi ble based on patient's age to complete this topic HPV Vaccines Aged Out No longer eligi ble based on patient's age to complete this topic Hepatitis A Vaccines Aged Out No long er eligible based on patient's age to complete this topic Hepatitis B Vaccines Aged Out No long er eligible based on patient's age to complete this topic IPV Vaccines Aged Out No longer eligi ble based on patient's age to complete this topic MMR Vaccines Aged Out No longer eligi ble based on patient's age to complete this topic Meningococcal ACWY Vaccine Aged Out N o longer eligible based on patient's age to complete this topic Meningococcal B Vaccine Aged Out No l onger eligible based on patient's age to complete this topic Pneumococcal Vaccine: Pediat rics (0 to 5 Years) and At-Risk Patients (6 to 64 Years) Aged Out No longer eligible b ased on patient's age to complete this topic RSV Immunization Patients Un julian 20 months Aged Out No longer eligible b ased on patient's age to complete this topic Varicella Vaccines Aged Out No longer eligible based on patient's age to complete this topic Insurance [facility] Care Teams Procurement Accountant Relationship Specialty Start Date End Date José Flynn MD [address] [place] PCP - General Internal Medicine 03/03/24
[2024-08-15 13:08] LABS: MANUAL DIFF FLAG NO
[2024-08-15 13:23] LABS: Basophils Absolute Auto 0.1 X10*3/uL (0.0-0.2); Basophils Percent Auto 0.6 % (0-2); Eosinophils Absolute Auto 0.3 X10*3/uL (0.0-0.4); Eosinophils Percent Auto 3.4 % (0-4); Hemoglobin 16.5 g/dl (14.0-18.0); Imm Gran Abs Auto 0.04 X10*3/uL (0.00-0.03); Imm Gran Pct Auto 0.5 % (0.0-0.4); Lymphocytes Absolute Auto 1.6 X10*3/uL (1.2-4.9); Lymphocytes Percent Auto 20.1 % (20-40); Mean Corpuscular HGB Conc 35.1 g/dl (31.0-36.0); Mean Corpuscular Volume 88.3 fL (80.0-98.0); Mean Platelet Volume 11.1 fL (9.4-12.4); Monocytes Absolute Auto 0.6 X10*3/uL (0.1-1.2); Monocytes Percent Auto 8.3 % (2-11); Neutrophils Absolute Auto 5.2 x10*3/uL (2.0-8.3); Neutrophils Percent Auto 67.1 % (45-73); Platelet Count 236 X10*3/uL (160-400); Red Blood Count 5.32 X10*6/uL (4.60-5.80); Red Cell Distribution Width 13.1 % (11.0-16.0); White Blood Count 7.7 X10*3/uL (4.8-10.8)
[2024-08-15 13:36] LABS: Alanine Aminotransferase 43 U/L (0-40); Albumin Level 4.3 g/dL (3.5-5.0); Alkaline Phosphatase 72 U/L (39-117); Anion Gap 11 (12-20); Aspartate Amino Transferase 28 U/L (5-37); Bilirubin Total 0.5 mg/dL (0.0-1.0); Blood Urea Nitrogen 18 mg/dL (9-16); Carbon Dioxide 28 mmol/L (22-29); Chloride 107 mmol/L (96-108); Estimated Glomerular Filt Rate > 60; Glucose Fasting 94 mg/dL (60-99); Iron 92 mcg/dL (45-160); Percent Iron Saturation 37 % (15-50); Potassium 4.5 mmol/L (3.3-5.1); Sodium 141 mmol/L (135-145); Total Iron Binding Capacity 248 mcg/dL (228-428); Total Protein 7.2 g/dL (6.5-8.0); Unsaturated Iron Binding 156 ug/dL
[2024-08-15 13:51] LABS: Ferritin 618 ng/mL (20-250)
[2024-08-28 01:24] LABS: Estradiol Ultra Sensitive 51 pg/mL (< OR = 29)
== END 2024-08-15 11:05 | disposition home or self-care (01) ==
LOC: HO.10HDL 11:04
PROVIDERS: Visit Provider Internal Medicine
DX: Z13.29 Encounter for screening for other suspected endocrine disorder (principal); R53.83 Other fatigue; D50.8 Other iron deficiency anemias
CPT/HCPCS: 36415; 80053; 82670; 82728; 83540; 84403; 85025

== ENCOUNTER 2024-09-18 11:49 | Outpatient (AMB) | payer OTHER, SELFPAY ==
--- NOTE | 2024-09-18 11:51 | A.OFFVIS_ITS ---
Intake Visit Reasons: 6m/labs(testo pending) Intake Note: Pt presents to the office today for a 6 month follow up/labs Allergies No Known Allergies Allergy (Verified 09/18/24 11:53) HPI Comments Details: Bill is a pleasant male. He is a patient of Dr. Flynn. He seen following urologic conditions - abnormal hormonal labs Six-month follow-up Highest estrogen remains Trial low-dose anastrozole for blockade Repeat lab work 02/26 T 558, Free T 65, FSH 4.6, LH 4.6, E2 28, Ferritin 494 10/28 T 550 S 42 LH/FSH normal 02/27 T 440 08/29 T 551 Ft 74 E51 Ferritin 620 Had work 3rd shift at [employer] for many years Now retired Estrogen high 40 High ferritin persists - not hemochromatosis Abnormal hormonal labs High estrogen - over 200. Should be in 150 range Otherwise normal total testosterone 450, free testosterone 54 No reported symptoms NAD f/u PFSH Medical History Umbilical hernia Diastasis recti Surgical History History of repair of ACL Social History Alcohol intake: current Alcohol intake frequency: holidays/special occasions only Patient Tobacco Use Status: Never used Tobacco Review of Systems Const Denies chills and Denies fever(s) Card Reports no additional complaints and Denies syncope Resp Denies cough GI Denies abdominal pain and Denies heartburn Reports as per HPI and Denies change in libido Neuro Denies syncope Psych Denies change in libido Endo Denies change in libido Physical Exam Const General: cooperative, healthy appearing, comfortable and no acute distress Orientation/consciousness: patient oriented x3 HEENT Face and sinus: Yes normal facial exam Mouth: moist mucous membranes Neck Neck: Yes normal visual inspection, Yes full ROM and Yes trachea midline Chest Chest palpation & inspection: normal inspection of the chest Resp Effort & Inspection: normal respiratory effort, able to speak in complete senten berenice and no respiratory distress GI Inspection: Yes normal to inspection Back/Spine/Pelvis Cervical Spine: normal cervical lordosis Thoracic/Lumbar Spine: thoracic and lumbar spine normal to inspection Skin General skin exam: no rashes or lesions noted Neuro General: patient oriented x3, gait normal, tone normal and moves all extremities Extrem General: Yes normal to inspection and Yes capillary refill normal Assessment & Plan Assessment & Plan (1) Hypogonadism in male: Code(s): E29.1 - Testicular hypofunction Category: Medical Plan Trial low-dose anastrozole Orders: Orders Estradiol Ultra Sensitive 3 Months E29.1 - Testicular hypofunction Testosterone, Total 3 Months E29.1 - Testicular hypofunction Ferritin 3 Months E11.9 - Type 2 diabetes mellitus without complications, E29.1 - Testicular hypofunction Medications: New anastrozole 1/2 tablet 2 times a week - Sunday and 0.5 mg (1/2 x 1 mg) PO 2XW 13 tabs 0RF 90 days E29.1 - Testicular hypofunction Patient Instructions: This note is constructed using voice recognition software. While every effort has been made to ensure accuracy beauty operator apprentice errors may have been included. Imaging studies, laboratory and physical exam results were discussed and reviewed in detail. No major barriers to patient understanding were identified. An opportunity to ask questions regarding the treatment plan was provided. All questions were answered. The patient expressed understanding and agreement with the above treatment plan. The patient is aware they should contact our office by phone for worsening of their current condition or the appearance of new urologic symptoms. Compliance is encouraged with any medications and followup testing that is ordered. It is a privilege to participate in the urologic care of your patient. If you have any questions or concerns regarding treatment for the above conditions, or other urologic issues, please do not hesitate to contact me. The office telephone contact is [phone]. Sincerely, Dr Reagan Andrea MD, [facility] - Urology Compassionate Specialist Care for the Genitourinary System Coding Level of Care Code Est Pt Level 4 (03911) Diagnoses Hypogonadism in male E29.1
--- OUTSIDE RECORDS SUMMARY | 2024-09-18 12:51 | XMS_ITS ---
Author Organization [facility] Address [address] [facility] [place] [address] Care Team Providers Care Community Relations Director Name Role Phone Rina RUBIN, José Primary Care Provider Unavailab Vidal Pratt [facility] [phone] Encounters Encounter Location Date Provider Diagnosis [facility] [address] [facility] [place] [address] 01/02/2024 Vidal Garcia Plan Of Treatment No Information Progress Notes * Jerome RIOJASeDOB:1960 ( 64 yo M)Acc No.[id number]:01/02/2024 Progress Note Patient:?Bill RIOJAS Provider:?Vidal Garcia DPM :1960???Age:63 Y???Sex:Male Duc e:01/02/2024 Address[address] [place] Pcp:José Flynn MD Subjective: * Chief Complaints: [...] DPM Date:? 024 Generated for Printi ng/Faxing/eTransmitting on:?09/18/2024 12:51 PM EDT
--- OUTSIDE RECORDS SUMMARY | 2024-09-18 12:51 | XMS_ITS | Clinical Summary ---
Author Organization [facility] Address [address] [id number] Care Team Providers Care Bee Tender Name Role Phone Unavailable Primary Care Provider [...]
--- OUTSIDE RECORDS SUMMARY | 2024-09-18 12:51 | XMS_ITS | Clinical Summary ---
Author Organization [address] [facility] Address [address] [place] [address] Phone Care Team Providers Care Memorandum Statement Clerk Name Role Phone José Flynn MD Primary Care Provider [phone] Allergies No known active allergies Social History [...] patient's age to complete this topic Insurance [facility] Care Teams Memorandum Statement Clerk Relationship Specialty Start Date End Date José Flynn MD [address] [place] PCP - General Internal Medicine 03/03/24
--- OUTSIDE RECORDS SUMMARY | 2024-09-18 12:51 | XMS_ITS | Patient Health Record ---
Author Organization [facility] Address [address] [facility] [place] [address] Care Team Providers Care Eye Technician Name Role Phone José Flynn MD Primary Care Provider UnavailVidal Mccullough Unavailable [phone] Allergies No Known Allergies Reason For Referral [...] Location Date Provider Diagnosis [facility] [address] [address] 10/04/2023 Vidal Garcia Plantar fascial fibromatosis M72.2 ; Pain in left foot M79.672 ; Pain in right foot M79.671 ; Tinea pedis B35.3 and Tinea unguium B35.1 [facility] [address] [facility] [address] [place] [address] 10/03/2023 [facility] [address] 10/04/[address] [address] 01/02/[address] [address] 01/17/2024 Vidal Garcia Assessments Encounter Date Diagnosis [...] Insured Coverage Start Date Coverage End Date [facility] [address] [place] [id number] [facility] Bill Colin Self - patient is the insured Medical (General) History Medical History History ICD Code Joint implants/screws Surgical History Surgery Date(Month/Year) knee surgery, left acl
--- OUTSIDE RECORDS SUMMARY | 2024-09-18 12:52 | XMS_ITS ---
Author Organization [facility] Address [address] [facility] [place] [address] Care Team Providers Care Transport Nurse Name Role Phone José Flynn MD Primary Care Provider Unavailab Vidal Pratt [phone] REASON FOR VISIT Custom orthotics Encounters Encounter Location Date Provider Diagnosis [facility] [address] [place] [address] 01/17/2024 Vidal Garcia Plan Of Treatment No Information Progress Notes * Jerome RIOJASNoamOB:1960 ( 63 yo M)Acc No.[id number]:01/17/2024 Patient:?Bill Riojas :1960???Age:63 Y???Sex:Male Address:[address] , [place], [address] * true * Date:? Generated for Printi ng/Fasteveng/eTransmitting on:?09/18/2024 12:51 PM EDT
--- OUTSIDE RECORDS SUMMARY | 2024-09-18 12:52 | XMS_ITS ---
Author Organization [facility] Address [address] [place] [address] Care Team Providers Care Admissions Director Name Role Phone José Flynn MD Primary Care Provider Unavailab Vidal Pratt [phone] REASON FOR VISIT No Show Encounters Encounter Location Date Provider Diagnosis [facility] [address] [facility] [place] [address] 01/02/2024 Vidal Garcia Plan Of Treatment No Information Progress Notes * Jerome RIOJASNoamOB:1960 ( 63 yo M)Acc No.[id number]:01/02/2024 Patient:?Bill Riojas :1960???Age:63 Y???Sex:Male Address:[address] , [place], [address] * true * Date:? Generated for Printi ng/Faxing/eTransmitting on:?09/18/2024 12:51 PM EDT
== END 2024-09-18 12:18 | disposition home or self-care (01) ==
LOC: HO.HUSH 11:50
PROVIDERS: PCP Internal Medicine; Visit Provider Urology
DX: E29.1 Testicular hypofunction (principal)
CPT/HCPCS: 99214

== ENCOUNTER 2025-02-26 08:21 | Outpatient (REF) | payer OTHER, SELFPAY ==
--- OUTSIDE RECORDS SUMMARY | 2025-02-26 08:41 | XMS_ITS | Clinical Summary ---
Author Organization [address] [facility] Address [address] [place] [address] Phone Care Team Providers Care Hide Measuring Machine Operator Name Role Phone José Flynn MD Primary Care Provider [phone] Allergies No known active allergies Social History Tobacco Use Types Packs/Day Years Used Date Smoking Tobacco: Never Assessed Sex and Gender Information Value Date Recorded Sex Assigned at Not on file Legal Sex Male 5:16 AM EST Gender Identity Not on file Sexual Orientation Not on file Plan of Treatment Health Maintenance Due Date Last Done Comments Colorectal Cancer Screening: Colonoscopy 1960 DTaP,Tdap,and Td Vaccines (1 - Tdap) 1981 Pneumococcal Vaccine: 50+ Ye ars (1 of 1 - PCV) 2012 Zoster Vaccines (1 of 2) 2012 Cholesterol Screening (Lipid Panel) 03/04/2024 HIV Screening 03/04/2024 Hepatitis C Screening 03/04/2024 Social Influencers of Health Screening 03/04/2024 Depression Screening 05/07/2024 COVID-19 Vaccine (1 - 2023-2 5 season) 2025 Influenza Vaccine (#1) 2025 RSV Immunization Adult Patie nts (1 [...] patient's age to complete this topic Insurance [facility] [place] [id number] Care Teams Hide Measuring Machine Operator Relationship Specialty Start Date End Date José Flynn MD [address] [place] PCP - General Internal Medicine 03/03/24
--- OUTSIDE RECORDS SUMMARY | 2025-02-26 08:41 | XMS_ITS | Clinical Summary ---
Author Organization [facility] Address [address] [place] [phone] Phone Care Team Providers Care Orthopedic Rn Name Role Phone José Flynn MD Primary Care Provider [phone] Allergies No known active allergies Medications No known medications Social History Tobacco Use Types Packs/Day Years Used Date Smoking Tobacco: Never Smokeless Tobacco: Never Tobacco Cessation:Counseling Given: Not Answered Education Answer Date Recorded Are you interested in more education? Not on reginaldo e 09/03/2022 Are you concerned about learning? Not on file 09/03/2022 No 09/03/2022 No 09/03/2022 Digital Access Answer Date Recorded No 10/01/2022 No 10/01/2022 Reliable internet access at home? Not on file 10/01/2022 Device with a working camera? Not on file Sex and Gender Information Value Date Recorded Sex Assigned at Not on file Legal Sex Male 5:05 PM EST Gender Identity Not on file Sexual Orientation Not on file Last Filed Vital Signs Vital Sign Reading Time Taken Comments Blood Pressure - - Pulse - - Temperature - - Respiratory Rate - - Oxygen Saturation - - Inhaled Oxygen Concentration - - Weight 93 kg (205 lb) 11/27/2022 11:23 AM EDT Height 170.2 cm (5' 7 ) 11/27/2022 11:23 AM EDT Body Mass Index 32.11 11/27/2022 11:23 AM EDT Plan of Treatment Health Maintenance Due Date Last Done Comments LIPID PANEL 1960 DEPRESSION SCREENING 1974 HEPATITIS C SCREENING 1980 HIV ONE-TIME SCREENING (18-6 5 YEARS) 1980 SCREENING FOR DIABETES 1997 COLOGUARD 09/12/2007 COLONOSCOPY 09/12/2007 COLORECTAL CANCER SCREENING 09/12/2007 FIT TEST 09/12/2007 FOBT 09/12/2007 SIGMOIDOSCOPY 09/12/2007 VIRTUAL COLONOSCOPY 09/12/2007 PNEUMOCOCCAL VACCINES (50+ years) (1 of 1 - PCV) 2012 ZOSTER VACCINES (1 of 2) 2012 INFLUENZA VACCINE (#1) 2024 , 03/15/2018, 03/09/2017 COVID-19 VACCINE (3 - 2024-2 6 season) 2025 02/28/2021, 01/26/2021 Adult Td,Tdap Booster 03/09/2027 03/09/2017 RSV VACCINE (1 - 1-dose 75+ series) 2037 SMOKING STATUS SCREENING (On ce After 26 Yrs) Completed 11/27/2022 HEPATITIS A VACCINES Aged Out No long er eligible based on patient's age to complete this topic HIB VACCINES Aged Out No longer eligi ble based on patient's age to complete this topic MENINGOCOCCAL VACCINES (ACWY) Aged Out No longer eligible based on patient's age to complete this topic MENINGOCOCCAL VACCINES (B) Aged Out N o longer eligible based on patient's age to complete this topic Medical Devices Not on file [facility] [employer] [facility] [employer] [place] [id number] [employer] PPO TeamSupport GIC PLUS PPO [employer] P[employer] P[employer] Care Teams Orthopedic Rn Relationship Specialty Start Date End Date José Flynn MD [address] [place] [address] [phone] PCP - General Internal Medicine 07/11/17 Additional Source Comments The information contained in this document represents components of the legal health record. It is not the complete legal health record.[facility]
[2025-02-26 10:31] LABS: Ferritin 618 ng/mL (20-250)
[2025-03-04 00:23] LABS: Estradiol Ultra Sensitive 29 pg/mL (< OR = 29)
== END 2025-02-26 08:22 | disposition home or self-care (01) ==
LOC: HO.10HDL 08:21
PROVIDERS: Visit Provider Urology
DX: E29.1 Testicular hypofunction (principal); E11.9 Type 2 diabetes mellitus without complications
CPT/HCPCS: 36415; 82670; 82728; 84403